=== PATIENT | female | born 1980 | race Caucasian/White ===

== ENCOUNTER 2017-06-15 10:01 | Emergency (ER) | payer OTHER ==
[~2017-06-15] VITALS: Ht 167.6 cm; Wt 127.0 kg
[~2017-06-15 10:01] MED LIST: CEPHALEXIN 500500 M3 PO; CIPRO500 MG PO; CLEOCIN HCL150 MG PO; DIPHENHIST50 MG PO; DOXYCYCLINE 10100 MG PO; LEXAPRO 10 MG T10 M1 PO; LISINOPRIL10 MG PO; NORCO 5-325 TA1 EAC1 PO; ONDANSETRON HCL4 M2 PO; PERCOCET 5-3251 EACH PO; PREDNISONE 20 M20 MG PO; PREDNISONE50 MG PO; TESSALON PERLE100 MG PO; VENTOLIN HFA 1818 GM INH; XANAX 0.5 MG0.5 MG PO
[2017-06-15] MEDS ORDERED: CLEOCIN HCL150 MG PO (10:20)
[2017-06-15 10:29] VITALS: BP 143/86
== END 2017-06-15 10:29 | disposition home or self-care (01) ==
LOC: M.ERS 10:01
DX: L03.115 Cellulitis of right lower limb (principal); F43.10 Post-traumatic stress disorder, unspecified; I10 Essential (primary) hypertension; F41.9 Anxiety disorder, unspecified; F32.9 Major depressive disorder, single episode, unspecified; E66.01 Morbid (severe) obesity due to excess calories; Z86.14 Personal history of Methicillin resistant Staphylococcus aureus infection; Z88.0 Allergy status to penicillin; Z88.2 Allergy status to sulfonamides; Z88.6 Allergy status to analgesic agent; Z68.42 Body mass index [BMI] 45.0-49.9, adult

== ENCOUNTER 2018-01-29 21:21 | Emergency (ER) | payer OTHER ==
[~2018-01-29] VITALS: Ht 167.6 cm; Wt 127.0 kg
[2018-01-29] MEDS ORDERED: XANAX (21:32)
[2018-01-29] MEDS ORDERED: SEROQUEL (21:32)
[2018-01-29 22:32] LABS: HEMATOCRIT 42.6 % (37.0-47.0); HEMOGLOBIN 13.8 gm/dL (12.0-15.0); MCH 27.7 pg (26.0-34.0); MCHC 32.3 g/dL (28.0-37.0); MCV 85.7 fL (80.0-100.0); MPV 7.9 fl. (7.2-11.1); NUCLEATED RBCS 0 /100WBC; PLATELET COUNT* 419 thou/uL (150-400); RBC 4.97 mil/uL (4.20-5.00); RDW-CV 14.4 % (10.5-14.5); WBC 19.4 thou/uL (4.0-11.0)
[2018-01-29 22:40] LABS: CALCIUM 8.6 mg/dL (8.5-10.1); CREATININE 0.8 mg/dL (0.6-1.3); POTASSIUM 4.4 mmol/L (3.5-5.1)
[2018-01-29 22:45] LABS: ALBUMIN 3.5 g/dL (3.4-5.0); TOTAL BILIRUBIN 0.5 mg/dL (<0.1-1.0); TOTAL PROTEIN 8.2 g/dL (6.4-8.2)
[2018-01-29 22:46] LABS: URINE BILIRUBIN NEGATIVE (Negative); URINE BLOOD 1+ (Negative); URINE CLARITY CLEAR; URINE COLOR YELLOW; URINE GLUCOSE-RANDOM NEGATIVE (Negative); URINE KETONES NEGATIVE (Negative); URINE LEUKOCYTES-REFLEX NEGATIVE (Negative); URINE NITRITE-REFLEX NEGATIVE (Negative); URINE PROTEIN NEGATIVE (Negative); URINE SPECIFIC GRAVITY 1.015 (1.005-1.030); URINE UROBILINOGEN 0.2 E.U./dl (0.2-1.0)
[2018-01-29 23:12] LABS: SQUAMOUS >10 Many /LPF (0-3)
[2018-01-29 23:13] LABS: BACTERIA-REFLEX 1-9 Few /HPF (None Seen); CASTS None Seen /LPF (None Seen); CRYSTALS None Seen /LPF (None Seen); URINE RBC 0-2 Rare /HPF (0-2); URINE WBC-REFLEX 0-5 Rare /HPF (0-5)
[2018-01-30 00:10] LABS: ABSOLUTE BASOPHILS 0.2 thou/uL (0.0-0.2); ABSOLUTE LYMPHOCYTES 1.9 thou/uL (0.8-5.3); ABSOLUTE MONOCYTES 0.6 thou/uL (0.0-1.2); ABSOLUTE NEUTROPHILS 16.7 thou/uL (1.6-8.1); PLATELET ESTIMATE INCREASED
[2018-01-30 00:11] LABS: LARGE PLATELETS RARE
[2018-01-30] MEDS ORDERED: PHENERGAN 25 MG25 M1 PO (00:39)
[2018-01-30] MEDS ORDERED: HYDROCODON-ACE1 EAC7 PO (00:39)
[2018-01-30 00:57] VITALS: BP 140/74
== END 2018-01-30 01:31 | disposition home or self-care (01) ==
LOC: M.ERS 21:21
PROVIDERS: Personal Emergency Response Attendant
DX: R11.2 Nausea with vomiting, unspecified (principal); F41.0 Panic disorder [episodic paroxysmal anxiety]; F32.9 Major depressive disorder, single episode, unspecified; I10 Essential (primary) hypertension; E66.01 Morbid (severe) obesity due to excess calories; Z68.42 Body mass index [BMI] 45.0-49.9, adult; Z90.49 Acquired absence of other specified parts of digestive tract; Z86.14 Personal history of Methicillin resistant Staphylococcus aureus infection; Z88.0 Allergy status to penicillin; Z88.2 Allergy status to sulfonamides; Z88.6 Allergy status to analgesic agent